=== PATIENT | male | born 2000 | race Two or more races ===

== ENCOUNTER 2022-10-08 16:45 | Emergency (ER) | payer SELFPAY ==
[~2022-10-08] VITALS: Ht 180.3 cm; Wt 77.3 kg
[2022-10-08] MEDS ORDERED: PERTUSS(ACELL),DIPH,TET VAC/PF 0.5 ML SYRINGE IM. ONE (20:15)
[2022-10-08 21:46] VITALS: BP 129/67
== END 2022-10-08 21:48 | disposition home or self-care (01) ==
LOC: EMS 16:50
DX: S61.411A Laceration without foreign body of right hand, initial encounter (principal); Z23 Encounter for immunization; W29.8XXA Contact with other powered hand tools and household machinery, initial encounter; Y93.89 Activity, other specified; Y92.89 Other specified places as the place of occurrence of the external cause; Y99.8 Other external cause status
CPT/HCPCS: 12001; 90471; 90715; 99283